=== PATIENT | female | born 1945 | race Caucasian/White ===

== ENCOUNTER → 2018-09-04 | Outpatient (CLI) | payer OTHER, BC ==
--- NOTE | ~2018-09-04 | EKG ---
[address] [place] [address] ELECTROCARDIOGRAM REPORT Name: KENDALL RYAN Room #: ALEJANDRO Aguillon#: [id number] Admission: 09/04/18 Attend Phys: Alexa Cramer MD Discharge: Date of : 45 Report #: [id number] THIS REPORT FOR: //name// [facility] Test Date: 2018-09-04 Test Time: 15:22:06 Pat Name: KENDALL RYAN Department: Room: Gender: F Clinical Trial Data Manager: Ignacio SHAW : 1945 Requested By: Alexa Cramer Order Number: [id number] MD: Car Muir Measurements Intervals Kathleen Rate: 61 P: 65 WI: 200 QRS: 56 QRSD: 105 T: 31 QT: 427 QTc: 430 Interpretive Statements Sinus rhythm Low voltage, precordial leads No previous ECG available for comparison Electronically Signed On 09-05-2018 8:18:01 CDT by Car Muir [email or web address] <ELECTRONICALLY SIGNED> By: Car Muir MD 09/05/18 0818 1522 1522 MD JESSICA Sherman
[2018-09-04 14:57] LABS: CALCIUM 9.5 mg/dL (8.5-10.1); CREATININE 1.1 mg/dL (0.6-1.0)
== END ==
LOC: LABMALL 14:21
PROVIDERS: Anesthesiology
DX: Z01.818 Encounter for other preprocedural examination (principal); I10 Essential (primary) hypertension